=== PATIENT | female | born 1980 | race Caucasian/White ===

== ENCOUNTER 2021-10-10 20:00 | Observation (INO) ==
[2021-10-10] MEDS ORDERED: Albuterol 2.5 MG/3 ML NEBULIZER IH ONE ×2 (20:31→22:17)
[2021-10-10] MEDS ORDERED: Ipratropium/Albuterol Neb 3 ML IH ONE (20:31)
[2021-10-10 21:48] LABS: Basophils # 0.1 K/mcL (0.0-0.2); Basophils % 0.6 %; Eosinophils # 0.5 K/mcL (0.0-0.6); Eosinophils % 4.9 %; Hematocrit 45.5 % (35.3-44.9); Hemoglobin 14.8 g/dL (11.5-15.4); Immature Granulocytes % 0.3 % (0-4); Lymphocytes # 3.8 K/mcL (0.6-4.6); Lymphocytes % 35.2 %; Mean Corpuscular HGB Conc 32.5 g/dL (31.6-35.5); Mean Corpuscular Hemoglobin 30.6 pg (28.0-33.3); Mean Corpuscular Volume 94.2 fL (83.0-100.0); Mean Platelet Volume 10.1 fL (9.4-12.4); Monocytes # 0.6 K/mcL (0.0-1.3); Monocytes % 5.7 %; Neutrophils # 5.8 K/mcL (1.6-8.9); Platelet Count 286 K/mcL (140-400); Red Blood Count 4.83 M/mcL (3.82-4.97); Red Cell Distribution Width 13.4 % (11.5-14.5); Segmented Neutrophils % 53.3 %; White Blood Count 10.9 K/mcL (4.3-11.1)
[2021-10-10 22:16] LABS: Adenovirus Not Detected (Not Detect); Bordetella Pertussis Not Detected (Not Detect); Chlamydophila pneumoniae Not Detected (Not Detect); Coronavirus 229E Not Detected (Not Detect); Coronavirus HKU1 Not Detected (Not Detect); Coronavirus NL63 Not Detected (Not Detect); Coronavirus OC43 Not Detected (Not Detect); Human Metapneumovirus Not Detected (Not Detect); Human Rhinovirus/Enterovirus Not Detected (Not Detect); Influenza A Subtype 2009 H1 Not Detected (Not Detect); Influenza B Not Detected (Not Detect); Mycoplasma pneumoniae Not Detected (Not Detect); Parainfluenza Virus 1 Not Detected (Not Detect); Parainfluenza Virus 2 Not Detected (Not Detect); Parainfluenza Virus 3 Not Detected (Not Detect); Parainfluenza Virus 4 Not Detected (Not Detect); Respiratory Syncytial Virus Not Detected (Not Detect); SARS-CoV-2 Not Detected (Not Detect)
[2021-10-10] MEDS ORDERED: Dexamethasone Sodium Phos/PF 10 MG/ML VIAL IVP ONE (22:17)
[2021-10-10 22:27] LABS: BUN/Creatinine Ratio 13 (6-26); Blood Urea Nitrogen 7 mg/dL (6-20); Calcium 9.4 mg/dL (8.6-10.3); Carbon Dioxide 28 mEq/L (23-29); Chloride 100 mEq/L (98-107); Glucose 87 mg/dL (70-105); Osmolality,Calculated 287 (280-300); Potassium 3.9 mEq/L (3.5-5.1); Sodium 140 mEq/L (136-145); Troponin I < 0.03 ng/mL (< 0.04); eGFR For African Americans > 60 (> 60); eGFR For Non-African Americans > 60 (> 60)
[2021-10-11] MEDS ORDERED: Dexamethasone Sodium Phos/PF 10 MG/ML VIAL IVP ONE (00:13)
[2021-10-11 00:43] LABS: ABG Base Excess 3 mEq/L (-2 to 3); ABG HCO3 28 mEq/L (21-27); ABG Oxygen Saturation 90 % (95-98); ABG PCO2 42 mmHg (35-45); ABG PH 7.43 pH Units (7.32-7.45); ABG PO2 58 mmHg (85-104); ABG TCO2 29 mEq/L (20-26)
[2021-10-11] MEDS ORDERED: Ondansetron 4 MG/2 ML VIAL IVP PRN (01:09)
[2021-10-11] MEDS ORDERED: Acetaminophen 325 MG TABLET PO PRN (01:09)
[2021-10-11] MEDS ORDERED: Naloxone 0.4 MG/ML INJ IVP PRN (01:09)
[2021-10-11] MEDS ORDERED: Melatonin 3 MG TABLET PO PRN (01:09)
[2021-10-11] MEDS ORDERED: Albuterol 2.5 MG/3 ML NEBULIZER IH PRN (01:56)
[2021-10-11 02:14] LABS: Basophils % 0.3 %; Eosinophils % 0.3 %; Hematocrit 46.3 % (35.3-44.9); Hemoglobin 15.4 g/dL (11.5-15.4); Immature Granulocytes % 0.3 % (0-4); Lymphocytes # 1.3 K/mcL (0.6-4.6); Lymphocytes % 10.7 %; Mean Corpuscular HGB Conc 33.3 g/dL (31.6-35.5); Mean Corpuscular Hemoglobin 30.7 pg (28.0-33.3); Mean Corpuscular Volume 92.2 fL (83.0-100.0); Monocytes # 0.1 K/mcL (0.0-1.3); Neutrophils # 10.2 K/mcL (1.6-8.9); Platelet Count 294 K/mcL (140-400); Red Blood Count 5.02 M/mcL (3.82-4.97); Red Cell Distribution Width 13.3 % (11.5-14.5); Segmented Neutrophils % 87.4 %; White Blood Count 11.7 K/mcL (4.3-11.1)
[2021-10-11] MEDS: Azithromycin 500 MG in 0.9 % Sodium Chloride 250 ML IVPB SCH (02:27)
[2021-10-11 02:36] LABS: Alanine Aminotransferase 13 Units/L (7-52); Albumin 4.3 g/dL (3.5-5.7); Albumin/Globulin Ratio 1.3 (1.1-2.2); Alkaline Phosphatase 81 Units/L (34-104); Aspartate Amino Transferase 15 Units/L (13-39); BUN/Creatinine Ratio 12 (6-26); Bilirubin,Total 0.4 mg/dL (0.3-1.0); Blood Urea Nitrogen 7 mg/dL (6-20); Calcium 9.6 mg/dL (8.6-10.3); Carbon Dioxide 27 mEq/L (23-29); Chloride 104 mEq/L (98-107); Globulin 3.3 g/dL (2.4-3.5); Glucose 145 mg/dL (70-105); Magnesium 1.8 mg/dL (1.6-2.6); Osmolality,Calculated 293 (280-300); Potassium 3.6 mEq/L (3.5-5.1); Sodium 141 mEq/L (136-145); Total Protein 7.6 g/dL (6.4-8.9); Troponin I 0.05 ng/mL (< 0.04); eGFR For African Americans > 60 (> 60); eGFR For Non-African Americans > 60 (> 60)
[2021-10-11] MEDS ORDERED: Perflutren Lipid Microsphere 1.3 ML in 0.9 % Sodium Chloride 8.7 ML IVP PRN (02:44)
[2021-10-11] MEDS: Ipratropium/Albuterol Neb 3 ML IH SCH ×4 (04:35→19:51)
[2021-10-11] MEDS ORDERED: predniSONE 20 MG TABLET PO SCH (09:00)
[2021-10-11 09:07] LABS: Chol/HDL Ratio 3.6 (0-4.9); Cholesterol 196 mg/dL (< 200); HDL Cholesterol 55 mg/dL (40-59); LDL Cholesterol,Calculated 130 mg/dL (< 100); Triglycerides 53 mg/dL (< 150); Troponin I < 0.03 ng/mL (< 0.04)
[2021-10-11] MEDS: MethylPREDNISolone 40 MG/ML VIAL IVP SCH ×2 (09:20→16:59)
[2021-10-11 12:48] LABS: Estimated Average Glucose 117 mg/dl; Hemoglobin A1C 5.7 %
[2021-10-11] MEDS: Nicotine 21 MG PATCH.TD24 TD SCH (15:22)
[2021-10-12] MEDS: Azithromycin 500 MG in 0.9 % Sodium Chloride 250 ML IVPB SCH (01:40)
[2021-10-12 02:28] LABS: Basophils % 0.2 %; Hematocrit 42.3 % (35.3-44.9); Hemoglobin 14.1 g/dL (11.5-15.4); Immature Granulocytes % 0.6 % (0-4); Lymphocytes # 1.5 K/mcL (0.6-4.6); Lymphocytes % 11.2 %; Mean Corpuscular HGB Conc 33.3 g/dL (31.6-35.5); Mean Corpuscular Hemoglobin 30.6 pg (28.0-33.3); Mean Corpuscular Volume 91.8 fL (83.0-100.0); Monocytes # 0.3 K/mcL (0.0-1.3); Neutrophils # 11.4 K/mcL (1.6-8.9); Platelet Count 290 K/mcL (140-400); Red Blood Count 4.61 M/mcL (3.82-4.97); Red Cell Distribution Width 13.4 % (11.5-14.5); White Blood Count 13.2 K/mcL (4.3-11.1)
[2021-10-12 02:46] LABS: Magnesium 1.9 mg/dL (1.6-2.6); Phosphorous 3.4 mg/dL (2.7-4.5)
[2021-10-12 03:13] VITALS: PULSE 60
[2021-10-12] MEDS: Ipratropium/Albuterol Neb 3 ML IH SCH ×2 (03:53→10:24)
[2021-10-12 07:44] VITALS: BP 106/71; TEMP 97.5
[2021-10-12] MEDS ORDERED: Famotidine 20 MG TABLET PO SCH (09:00)
[2021-10-12] MEDS ORDERED: predniSONE 20 MG TABLET PO SCH (09:00)
[2021-10-12] MEDS: Nicotine 21 MG PATCH.TD24 TD SCH (09:04)
[2021-10-12 09:36] VITALS: O2SAT 95
== END 2021-10-12 10:59 | disposition home or self-care (01) ==
LOC: 3BNU 20:00 → EMEROOARM 20:00 → SUATTDRO 10-11 00:21 → 3BNU 10-11 00:59
PROVIDERS: ADMIT Family Medicine; ATTEND Registered Nurse